=== PATIENT | male | born 1985 | race Two or more races ===

== ENCOUNTER 2022-10-06 20:26 | Inpatient (IN) | payer MEDICAID, OTHER ==
[~2022-10-06] VITALS: Ht 167.6 cm; Wt 87.3 kg
[2022-10-06 21:29] LABS: Basophils # (auto) 0.1 10 ^3/uL (0-0.2); Basophils % (auto) 0.6 % (0.0-2.0); Eosinophils # (auto) 0.1 10 ^3/uL (0-0.8); Eosinophils % (auto) 0.8 % (0.0-7.0); Hematocrit 52.3 % (41.0-53.0); Hemoglobin 16.7 g/dL (13.5-17.5); Lymphocytes # (auto) 2.1 10 ^3/uL (0.4-5.4); Lymphocytes % (auto) 24.6 % (10.0-50.0); Mean Corpuscular Hemoglobin 28.1 pg (28.0-32.0); Mean Corpuscular Hgb Conc. 31.8 g/dL (32.0-36.0); Mean Corpuscular Volume 88.3 fL (80.0-100.0); Monocytes # (auto) 0.5 10 ^3/uL (0-1.3); Monocytes % (auto) 6.2 % (0.0-12.0); Neutrophils # (auto) 5.8 10 ^3/uL (1.6-8.6); Neutrophils % (auto) 67.8 % (37.0-80.0); Nucleated Red Blood Cells % 0.2 %; Red Blood Cells 5.93 10^6/uL (4.5-5.90); Red Cell Distribution Width 15.3 % (11.8-14.3); White Blood Cell 8.6 10^3/uL (4.4-10.8)
[2022-10-06 21:43] LABS: INR 1.78 (0.9-1.15); Partial Thromboplastin Time 27.6 SEC (24.5-34.5)
[2022-10-06 21:53] LABS: Albumin 3.4 g/dL (3.4-5.0); Calcium 8.9 mg/dL (8.5-10.1); Potassium 4.3 mmol/L (3.5-5.1)
[2022-10-06 21:56] LABS: BUN/Creatinine Ratio 16.1 (10.0-20.0); Bilirubin, Total 3.2 mg/dL (0.2-1.0); Total Protein 7.8 g/dL (6.4-8.2)
[2022-10-06] MEDS ORDERED: FUROSEMIDE 40 MG/4 ML VIAL IV ONE (23:30)
[2022-10-06] MEDS ORDERED: SOD CHL 0.45% WITH 20MEQ KCL 1,000 ML IV ONE (23:30)
[2022-10-07] VITALS (36 sets, daily range): BP systolic 80–159; BP diastolic 43–132
[2022-10-07] MEDS ORDERED: MORPHINE SULFATE INJ 2 MG/ml SYRG IV PRN (01:00)
[2022-10-07] MEDS ORDERED: ONDANSETRON HCL 4 MG/2 ML VIAL IV PRN (01:00)
[2022-10-07] MEDS ORDERED: NITROGLYCERIN 0.4 MG SL TAB SL PRN (01:00)
[2022-10-07] MEDS ORDERED: IOHEXOL 350 MG/ML 100ML IJ ONE (01:28)
[2022-10-07] MEDS ORDERED: ENOXAPARIN SOD 100 MG/1 ML SYRINGE SC SCH (10:00)
[2022-10-07] MEDS: LISINOPRIL 5 MG TAB PO SCH (10:00)
[2022-10-07] MEDS: ASPirin 81 mg TAB PO SCH (10:18)
[2022-10-07] MEDS: PANTOPRAZOLE 40 MG TAB PO SCH (10:18)
[2022-10-07] MEDS: FUROSEMIDE 40 MG/4 ML VIAL IV SCH ×2 (10:18→20:51)
[2022-10-07] MEDS ORDERED: MIDODRINE HCL 10 MG TAB PO ONE (12:45)
[2022-10-07] MEDS: CARVEDILOL 3.125 MG TAB PO SCH ×2 (12:45→22:00)
[2022-10-07] MEDS ORDERED: LORazepam 2MG/ML-1ML VIAL IV PRN (12:45)
[2022-10-07] MEDS ORDERED: HEPARIN SODIUM (PORCINE) 5000 UNITS/ML 1ML VIAL IV ONE (12:45)
[2022-10-07] MEDS ORDERED: HEPARIN DRIP/D5W 100UNITS/ML 250 ML IV SCH ×2 (13:00→22:30)
[2022-10-07 14:06] LABS: INR 3.05 (0.9-1.15)
[2022-10-07 14:11] LABS: Partial Thromboplastin Time > 139.0 SEC (24.5-34.5)
[2022-10-07] MEDS ORDERED: ETOMIDATE (2MG/ML) 20ML VIAL IV ONE ×2 (14:23→14:30)
[2022-10-07] MEDS ORDERED: MIDAZOLAM HCL 5 MG/ML-1ML VIAL ONE (14:24)
[2022-10-07] MEDS ORDERED: SUCCINYLCHOLINE CHLORIDE 20 MG/ML 10ML VIAL IV ONE ×2 (14:24→14:30)
[2022-10-07] MEDS ORDERED: cefTRIAXone 1GM/50ML D5W 50 ML IV SCH (14:30)
[2022-10-07] MEDS ORDERED: NOREPINEPHRINE 8 MG/250ML KIT 250 ML IV SCH (14:30)
[2022-10-07] MEDS ORDERED: MIDAZOLAM HCL 5 MG/ML-1ML VIAL IV ONE ×2 (14:30→15:00)
[2022-10-07] MEDS ORDERED: MIDAZOLAM DRIP 50 mg/50mL 50 ML IV SCH (14:30)
[2022-10-07] MEDS: MIDAZOLAM DRIP 50 mg/50mL 50 ML IV SCH ×2 (15:00→22:34)
[2022-10-07] MEDS: AZITHROMYCIN 500MG/ 250ML 250 ML IV SCH (15:46)
[2022-10-07] MEDS ORDERED: PHENYLEPHRINE IV 250 ML IV ONE (18:55)
[2022-10-07] MEDS ORDERED: PHENYLEPHRINE IV 250 ML IV SCH (19:00)
[2022-10-07] MEDS ORDERED: AMIODARONE HCL (50 MG/ ML) 3 ML VIAL IV ONE (19:01)
[2022-10-07] MEDS ORDERED: ALBUMIN 5% 250 ML IV ONE (19:15)
[2022-10-07] MEDS ORDERED: AMIODARONE 450mg/250ml AE 250 ML IV ONE (19:17)
[2022-10-07] MEDS ORDERED: AMIODARONE HCL 150 MG in D5W 5% 100 ML IV ONE (19:30)
[2022-10-07] MEDS ORDERED: SODIUM BICARBONATE 8.4 % INJ 50ML VIAL IV ONE ×3 (19:32→23:00)
[2022-10-07] MEDS ORDERED: AMIODARONE 450mg/250ml AE 250 ML IV SCH (19:45)
[2022-10-07] MEDS: VASOPRESSIN 20 UNITS in SODIUM CHL 0.9% 99 ML IV SCH (20:00)
[2022-10-07 21:13] LABS: INR 2.9 (0.9-1.15)
[2022-10-07 21:14] LABS: Partial Thromboplastin Time 108.8 SEC (24.5-34.5)
[2022-10-07] MEDS ORDERED: fentaNYL Drip 2500mCg/250mlNS 250 ML IV SCH (21:30)
[2022-10-07] MEDS ORDERED: PROPOFOL 100 ML IV SCH (21:30)
[2022-10-07] MEDS ORDERED: NOREPINEPHRINE BITARTRATE 2 ML IV ONE (21:44)
[2022-10-07] MEDS ORDERED: ATORVASTATIN 20 MG TAB PO SCH (22:00)
[2022-10-07 22:11] LABS: BUN/Creatinine Ratio 14.8 (10.0-20.0); Calcium 9.4 mg/dL (8.5-10.1); Potassium 4.9 mmol/L (3.5-5.1)
[2022-10-07] MEDS: NOREPINEPHRINE BITARTRATE 16 MG in SODIUM CHL 0.9% 234 ML IV SCH (22:18)
[2022-10-07] MEDS: PHENYLEPHRINE INJ 80 MG in SODIUM CHL 0.9% 242 ML IV SCH (23:40)
[2022-10-07 23:51] LABS: Lactic Acid w/Reflex 12.6 mmol/L (0.4-2.0)
[2022-10-08] VITALS (86 sets, daily range): BP systolic 0–106; BP diastolic 0–80
[2022-10-08] MEDS: VASOPRESSIN 20 UNITS in SODIUM CHL 0.9% 99 ML IV SCH ×2 (01:05→11:18)
[2022-10-08] MEDS ORDERED: SODIUM CHLORIDE 0.9% 1,000 ML IV ONE (01:15)
[2022-10-08] MEDS ORDERED: SODIUM BICARBONATE 50ML VIAL 100 ML in SOD CHL 0.45% 1,000 ML IV SCH (01:15)
[2022-10-08] MEDS ORDERED: VANCOMYCIN PER PHARMACY 0 MG IV SCH (01:15)
[2022-10-08] MEDS ORDERED: AMIODARONE 450mg/250ml AE 250 ML IV SCH (01:45)
[2022-10-08] MEDS ORDERED: VANCOMYCIN 1GM/250ML 250 ML IV ONE (02:00)
[2022-10-08] MEDS: MIDAZOLAM DRIP 50 mg/50mL 50 ML IV SCH ×2 (02:18→10:24)
[2022-10-08] MEDS ORDERED: PIPERACILLIN-TAZOB 3.375GM 100 ML IV SCH (03:00)
[2022-10-08 04:20] LABS: Hematocrit 52.9 % (41.0-53.0); Hemoglobin 16.7 g/dL (13.5-17.5); Mean Corpuscular Hemoglobin 28.8 pg (28.0-32.0); Mean Corpuscular Hgb Conc. 31.6 g/dL (32.0-36.0); Mean Corpuscular Volume 91.2 fL (80.0-100.0); Red Cell Distribution Width 15.5 % (11.8-14.3); White Blood Cell 26.5 10^3/uL (4.4-10.8)
[2022-10-08 04:23] LABS: Basophils % (manual) 0 (0.0-2.0); Blast Cells 0; Eosinophils % (manual) 0 (0-7); Metamyelocytes % 0; Myelocytes % 0; Promyelocytes % 0; Reactive Lymphocytes 0
[2022-10-08 04:41] LABS: BUN/Creatinine Ratio 14.5 (10.0-20.0); Calcium 9.2 mg/dL (8.5-10.1); Potassium 4.4 mmol/L (3.5-5.1)
[2022-10-08 04:55] LABS: INR 4.04 (0.9-1.15); Partial Thromboplastin Time 73.5 SEC (24.5-34.5)
[2022-10-08 04:56] LABS: Bilirubin, Total 5.3 mg/dL (0.2-1.0); Total Protein 6.4 g/dL (6.4-8.2)
[2022-10-08 05:39] LABS: Band Neutrophils % (manual) 12; Lymphocytes % (manual) 12 (10.0-50.0); Monocytes % (manual) 6 (0-12)
[2022-10-08] MEDS ORDERED: ALBUMIN 5% 250 ML IV ONE ×2 (06:00→06:03)
[2022-10-08] MEDS: FUROSEMIDE 40 MG/4 ML VIAL IV SCH (06:00)
[2022-10-08] MEDS: NOREPINEPHRINE BITARTRATE 16 MG in SODIUM CHL 0.9% 234 ML IV SCH (06:44)
[2022-10-08] MEDS: PHENYLEPHRINE INJ 80 MG in SODIUM CHL 0.9% 242 ML IV SCH (06:44)
[2022-10-08] MEDS ORDERED: EPINEPHrine HCL 250 ML IV ONE (07:01)
[2022-10-08] MEDS ORDERED: EPINEPHrine HCL 250 ML IV SCH (07:15)
[2022-10-08] MEDS ORDERED: DOPamine 1600MCG/ML D5W 250 ML IV SCH (08:30)
[2022-10-08] MEDS: LISINOPRIL 5 MG TAB PO SCH (10:00)
[2022-10-08] MEDS: CARVEDILOL 3.125 MG TAB PO SCH (10:00)
[2022-10-08] MEDS: ASPirin 81 mg TAB PO SCH (10:00)
[2022-10-08] MEDS: PANTOPRAZOLE 40 MG TAB PO SCH (10:00)
[2022-10-08 10:23] LABS: INR 5.14 (0.9-1.15)
[2022-10-08] MEDS: AZITHROMYCIN 500MG/ 250ML 250 ML IV SCH (10:53)
[2022-10-08] MEDS ORDERED: HEPARIN DRIP/D5W 100UNITS/ML 250 ML IV SCH (11:24)
[2022-10-08] MEDS ORDERED: EPINEPHrine HCL 1 MG/10 ML SYRG IV ONE (15:55)
== END 2022-10-08 13:24 | DRG 720 ==
LOC: EDBD 20:26 → ER 20:30 → TELE 10-07 00:57 → ICU WEST 10-07 17:11
PROVIDERS: ADMIT Nurse Practitioner; ATTEND Internal Medicine
PROC: 5A1935Z Respiratory Ventilation, Less than 24 Consecutive Hours (ICD-10-PCS; principal; 2022-10-07)
PROC: 0BH17EZ Insertion of Endotracheal Airway into Trachea, Via Natural or Artificial Opening (ICD-10-PCS; 2022-10-07)
PROC: 05HM33Z Insertion of Infusion Device into Right Internal Jugular Vein, Percutaneous Approach (ICD-10-PCS; 2022-10-07)
PROC: 5A12012 Performance of Cardiac Output, Single, Manual (ICD-10-PCS; 2022-10-07)
DX: A41.9 Sepsis, unspecified organism (principal); J96.01 Acute respiratory failure with hypoxia; R65.21 Severe sepsis with septic shock; I50.23 Acute on chronic systolic (congestive) heart failure; J18.9 Pneumonia, unspecified organism; I42.9 Cardiomyopathy, unspecified; I13.0 Hypertensive heart and chronic kidney disease with heart failure and stage 1 through stage 4 chronic kidney disease, or unspecified chronic kidney disease; N17.9 Acute kidney failure, unspecified; F17.210 Nicotine dependence, cigarettes, uncomplicated; E66.01 Morbid (severe) obesity due to excess calories; I25.10 Atherosclerotic heart disease of native coronary artery without angina pectoris; N18.30 Chronic kidney disease, stage 3 unspecified; Z86.711 Personal history of pulmonary embolism; Z68.31 Body mass index [BMI] 31.0-31.9, adult
CPT/HCPCS: 36415; 36600; 71045; 71275; 80048; 80053; 82805; 83605; 83615; 83880; 84484; 85007; 85025; 85027; 85379; 85610; 85730; 87070; 87081; 87205; 93005; 93306; 94002; 94003; G0378; J0171; J0330; J0696; J2250; J2543; J7060